=== PATIENT | female | born 1980 | race Hispanic/Latino ===

== ENCOUNTER 2021-09-03 09:44 | Outpatient (CLI) | payer SELFPAY ==
[2021-09-03 11:43] LABS: Hemoglobin 9.9 g/dL (12.0-15.5); Mean Corpuscular HGB CONC 31.2 g/dL (32.0-36.0); Mean Corpuscular Hemoglobin 23.9 pg (27.0-33.0); Mean Corpuscular Volume 76.6 fl (81.6-98.3); Platelet Count 341 10x3/uL (150-450); RBC Distribution Width 15.9 % (11.5-14.5); Red Blood Cell (RBC) Count 4.14 10x6/uL (3.90-5.03); White Blood Cell (WBC) Count 6.5 10x3/uL (3.5-10.5)
[2021-09-03 11:50] LABS: Bilirubin Neg (Negative); Blood, Urine Negative (Negative); Glucose, Urine (Dipstick) Normal (Negative); Ketone, Urine Negative (Negative); Leukocyte Negative (Negative); Nitrite Negative (Negative); Protein, Urine (Dipstick) Negative (Neg-Trace); Urobilinogen Normal mg/dL (Less than 2)
[2021-09-03 11:56] LABS: Clarity Clear (Clear)
[2021-09-03 12:29] LABS: BHCG - Serum Negative (NEGATIVE); Pregs Control Background? CLEAR/WHITE (CLR/WHITE); Pregs Control Bar Appear? YES (CONTROL BAR)
[2021-09-03 18:34] LABS: SARS-CoV-2 PCR by NAA Not Detected (NotDetected)
== END 2021-09-03 09:45 | disposition home or self-care (01) ==
LOC: CSHLAB 09:44
PROVIDERS: ATTEND Obstetrics & Gynecology
DX: Z01.812 Encounter for preprocedural laboratory examination (principal); Z20.822 Contact with and (suspected) exposure to COVID-19; D25.9 Leiomyoma of uterus, unspecified
CPT/HCPCS: 81003; 84703; 85027; U0003; U0005

== ENCOUNTER 2021-09-07 05:48 | Day surgery (SDC) | payer OTHER ==
[2021-09-03 10:55] VITALS: BMI 25.1
[2021-09-07] MEDS ORDERED: Lidocaine 1% MPF 2 ML VIAL ONE (06:26)
[2021-09-07] MEDS ORDERED: Dexamethasone 4 mg/ml Vial ONE (06:46)
[2021-09-07] MEDS ORDERED: Ondansetron PF 4 MG/2 ML Vial ONE (06:46)
[2021-09-07] MEDS ORDERED: Lidocaine 1% PF 5 ML VIAL ONE (06:46)
[2021-09-07] MEDS ORDERED: Fentanyl 100 MCG/2 ML VIAL ONE (06:46)
[2021-09-07] MEDS ORDERED: PROPOFOL 20 ML ONE (06:46)
[2021-09-07] MEDS ORDERED: Ketorolac Tromethamine 30 MG/ML VIAL ONE (06:47)
[2021-09-07] MEDS ORDERED: Midazolam HCl 2 mg/2 ml Vial ONE (07:00)
[2021-09-07] MEDS ORDERED: ceFAZolin 2 GM/Dextrose 50 ML IVPB ONE (07:01)
[2021-09-07] MEDS ORDERED: Furosemide 20 MG/2 ML VIAL ONE (08:08)
[2021-09-07] MEDS ORDERED: Meperidine HCl/PF 25 MG/ML VIAL ONE (08:27)
[2021-09-07 10:13] LABS: #Eosinphils 0.1 10x3/uL (0.0-0.5); #Monocytes 0.2 10x3/uL (0.0-1.1); #Neutrophils 12.2 10x3/uL (1.5-8.4); %Basophils 0.3 % (0.0-2.0); %Eosinophils 0.6 % (0.0-6.0); %Lymphocytes 8.2 % (18.0-47.0); %Monocytes 1.5 % (0.0-10.0); Hemoglobin 9.2 g/dL (12.0-15.5); Mean Corpuscular HGB CONC 31.2 g/dL (32.0-36.0); Mean Corpuscular Hemoglobin 23.7 pg (27.0-33.0); Mean Platelet Volume 10.8 fl (7.4-10.4); Platelet Count 284 10x3/uL (150-450); Red Blood Cell (RBC) Count 3.88 10x6/uL (3.90-5.03); White Blood Cell (WBC) Count 13.7 10x3/uL (3.5-10.5)
[2021-09-07 10:30] LABS: Anion Gap 13 mmol/L (10-20); BUN (Urea Nitrogen) 16 mg/dL (7.0-18.7); Calc. Creatinine Clearance 93 mL/min (70-130); Calcium 8.7 mg/dL (7.8-10.44); Carbon Dioxide 23 mmol/L (22-29); Chloride 104 mmol/L (98-107); Glucose 133 mg/dL (70-105); Potassium 3.8 mmol/L (3.5-5.1); Sodium 136 mmol/L (136-145)
== END 2021-09-07 11:05 | disposition home or self-care (01) ==
LOC: CSHSDC 05:48
PROVIDERS: ATTEND Obstetrics & Gynecology
PROC: 0UB98ZZ Excision of Uterus, Via Natural or Artificial Opening Endoscopic (ICD-10-PCS; principal; 2021-09-07)
DX: D25.1 Intramural leiomyoma of uterus (principal); N92.0 Excessive and frequent menstruation with regular cycle; D50.0 Iron deficiency anemia secondary to blood loss (chronic); Z79.899 Other long term (current) drug therapy
CPT/HCPCS: 36415; 80048; 85025; 88305; J0690; J1100; J1885; J1940; J2175; J2250; J2405; J2704; J3010

== ENCOUNTER 2023-09-21 13:20 | Emergency (ER) | payer OTHER ==
[2023-09-21 14:16] LABS: #Basophils 0.02 10x3/uL (0.0-0.2); #Eosinphils 0.02 10x3/uL (0.0-0.5); #Monocytes 0.36 10x3/uL (0.0-1.1); %Basophils 0.2 % (0.0-2.0); %Eosinophils 0.2 % (0.0-6.0); %Lymphocytes 7.2 % (18.0-47.0); %Monocytes 4.2 % (0.0-10.0); %Neutrophils 87.5 % (40.0-75.0); Hematocrit 31.2 % (34.9-44.5); Hemoglobin 11.2 g/dL (12.0-15.5); Mean Corpuscular HGB CONC 35.9 g/dL (32.0-36.0); Mean Corpuscular Hemoglobin 32.3 pg (27.0-33.0); Mean Corpuscular Volume 89.9 fl (81.6-98.3); Mean Platelet Volume 10.7 fl (7.4-10.4); Platelet Count 196 10x3/uL (150-450); RBC Distribution Width 13.7 % (11.5-14.5); Red Blood Cell (RBC) Count 3.47 10x6/uL (3.90-5.03); White Blood Cell (WBC) Count 8.6 10x3/uL (3.5-10.5)
[2023-09-21 14:35] LABS: ALT (SGPT) 61 U/L (8-55); AST (SGOT) 32 U/L (5-34); Albumin 2.5 g/dL (3.5-5.0); Alkaline Phosphatase 61 U/L (40-110); Anion Gap 11 mmol/L (10-20); BUN (Urea Nitrogen) 4 mg/dL (7.0-18.7); Bilirubin, Total 0.3 mg/dL (0.2-1.2); Calc. Creatinine Clearance 0 mL/min (70-130); Calcium 8.2 mg/dL (7.8-10.44); Carbon Dioxide 19 mmol/L (22-29); Chloride 107 mmol/L (98-107); Estimated GFR 115; Globulin 3.4 g/dL (2.4-3.5); Glucose 112 mg/dL (70-105); Potassium 3.3 mmol/L (3.5-5.1); Protein, Total 5.9 g/dL (6.0-8.3); Sodium 134 mmol/L (136-145)
[2023-09-22 14:47] LABS: Campy jejuni + coli by PCR POSITIVE (Negative); STEC Shiga Toxin 1+2 Negative (Negative); Salmonella spp. by PCR Negative (Negative); Shigella spp + EIEC by PCR Negative (Negative)
[2023-10-03 14:14] LABS: Routine O & P Final report (.)
== END 2023-09-21 16:29 | disposition home or self-care (01) ==
LOC: CSHERS 13:20
DX: K52.9 Noninfective gastroenteritis and colitis, unspecified (principal)
CPT/HCPCS: 80053; 82274; 85025; 87177; 87505; 93005; 96360

== ENCOUNTER 2024-01-14 17:39 | Inpatient (IN) | payer OTHER ==
[2024-01-14] MEDS: Lactated Ringer's 1,000 ML IV SCH (19:00)
[2024-01-14] MEDS ORDERED: Lidocaine 1% (PF) 30 ML VIAL SC PRN (19:10)
[2024-01-14] MEDS ORDERED: Ibuprofen 800 MG TAB PO PRN (19:10)
[2024-01-14] MEDS ORDERED: HYDROcodone/Acetaminophen 5/325 mg Tablet PO PRN ×2 (19:10)
[2024-01-14] MEDS ORDERED: Promethazine HCl 25 MG/ML VIAL IM PRN (19:10)
[2024-01-14] MEDS ORDERED: Ondansetron PF 4 MG/2 ML Vial IVP PRN (19:10)
[2024-01-14] MEDS ORDERED: hydrALAZINE 20 MG/ML VIAL SLOW IVP PRN (19:10)
[2024-01-14] MEDS ORDERED: fentaNYL 50 mcg/mL 1 mL Vial SLOW IVP PRN (19:10)
[2024-01-14 19:15] VITALS: BMI 31.1
[2024-01-14] MEDS ORDERED: Oxytocin 30 units/NS 500 ML 500 ML IV SCH (19:15)
[2024-01-14] MEDS: Penicillin G Potassium 5 MILL.UNITS in Sodium Chloride 0.9% 100 ML IVPB SCH (19:31)
[2024-01-14] MEDS: Misoprostol 100 MCG TAB VAG SCH ×3 (19:35→22:15)
[2024-01-14 19:57] LABS: Hematocrit 33.5 % (34.9-44.5); Mean Corpuscular HGB CONC 35.8 g/dL (32.0-36.0); Mean Corpuscular Hemoglobin 31.7 pg (27.0-33.0); Mean Corpuscular Volume 88.6 fL (81.6-98.3); Mean Platelet Volume 11.5 fL (7.4-10.4); Platelet Count 187 10x3/uL (150-450); RBC Distribution Width 13.8 % (11.5-14.5); Red Blood Cell (RBC) Count 3.78 10x6/uL (3.90-5.03)
[2024-01-14 20:24] LABS: HBsAg Index 0.19 S/CO (0-0.99); Hep B Surf Ag - L&D Non-Reactive S/CO (NonReactive)
[2024-01-14 20:26] LABS: Syphilis Antibody Nonreactive (Nonreactive); Syphilis Antibody Index 0.04 S/CO (<1.00 Non-Reactive)
[2024-01-14] MEDS: Penicillin G 2.5 MILL.units 2.5 MILL.UNITS in Premix 1 BAG IVPB SCH (23:20)
[2024-01-15] MEDS: fentaNYL/Ropivacaine Epidural 100 ML ONE (04:06)
[2024-01-15] MEDS ORDERED: diphenhydrAMINE 50 MG/ML VIAL IVP PRN (04:13)
[2024-01-15] MEDS ORDERED: Promethazine HCl 25 MG/ML VIAL IM PRN (04:13)
[2024-01-15] MEDS ORDERED: ePHEDrine Sulfate 50 MG/10 ML VIAL SLOW IVP PRN (04:13)
[2024-01-15] MEDS ORDERED: Naloxone HCl 0.4 mg/ml Vial IVP PRN ×2 (04:13)
[2024-01-15] MEDS ORDERED: Lactated Ringer's 500 ML IV PRN (04:13)
[2024-01-15] MEDS ORDERED: Acetaminophen 325 MG TAB PO PRN (04:13)
[2024-01-15] MEDS ORDERED: Ondansetron PF 4 MG/2 ML Vial IVP PRN ×2 (04:13→14:51)
[2024-01-15] MEDS ORDERED: Moisturizing Cream (Eucerin) 113 GM JAR TOP PRN (04:13)
[2024-01-15] MEDS ORDERED: Communication Order-Pharmacy FS SCH (04:15)
[2024-01-15] MEDS ORDERED: fentaNYL 2 mcg/Ropivacaine 0.2% Epidural 100 ML CADD EPIDURAL SCH (04:15)
[2024-01-15] MEDS: Sterile Water 10 ML ONE (07:43)
[2024-01-15] MEDS: Dexmedetomidine 200 MCG/2 ML VIAL ONE (07:43)
[2024-01-15] MEDS: Oxytocin 30 units/NS 500 ML 500 ML IV SCH (14:23)
[2024-01-15] MEDS ORDERED: Lanolin Ointment 7 GM TUBE TOP PRN (14:51)
[2024-01-15] MEDS ORDERED: hydrALAZINE 20 MG/ML VIAL SLOW IVP PRN (14:51)
[2024-01-15] MEDS ORDERED: HYDROcodone/Acetaminophen 5/325 mg Tablet PO PRN ×2 (14:51)
[2024-01-15] MEDS ORDERED: Milk Of Magnesia 30 ML UDCUP PO PRN (14:51)
[2024-01-15] MEDS ORDERED: Benzocaine-Menthol 82.5 ML CAN TOP PRN (14:51)
[2024-01-15] MEDS ORDERED: Preparation H Ointment 28 GM TUBE PR PRN (14:51)
[2024-01-15] MEDS ORDERED: Bisacodyl 10 MG SUPP PR PRN (14:51)
[2024-01-15] MEDS ORDERED: diphenhydrAMINE 25 MG CAP PO PRN (14:51)
[2024-01-15] MEDS ORDERED: Oxytocin 30 units/NS 500 ML 500 ML IV SCH (14:51)
[2024-01-15] MEDS: Boostrix 0.5 ML (Tdap) VIAL (>/=7 yrs of age) IM ONE (15:30)
[2024-01-15] MEDS: Ibuprofen 800 MG TAB PO SCH ×2 (18:13→21:33)
[2024-01-15] MEDS: Ferrous Sulfate 325 MG TAB PO SCH (18:14)
[2024-01-15] MEDS: Docusate 100 MG CAP PO SCH (21:33)
[2024-01-16] MEDS: Prenatal Vitamin 1 TAB PO SCH (09:06)
[2024-01-16 11:28] VITALS: BP 112/57; TEMP 97.5
== END 2024-01-16 15:00 | disposition home or self-care (01) | DRG 807 ==
LOC: CSHLD 17:39 → CSHPP 01-15 14:50
PROVIDERS: ADMIT Obstetrics & Gynecology; ATTEND Obstetrics & Gynecology
PROC: 10E0XZZ Delivery of Products of Conception, External Approach (ICD-10-PCS; principal; 2024-01-15)
PROC: 0HQ9XZZ Repair Perineum Skin, External Approach (ICD-10-PCS; 2024-01-15)
DX: O99.824 Streptococcus B carrier state complicating childbirth (principal); Z37.0 Single live birth; O09.523 Supervision of elderly multigravida, third trimester; Z3A.39 39 weeks gestation of pregnancy; O70.0 First degree perineal laceration during delivery
CPT/HCPCS: 36415; 51702; 85027; 86780; 86850; 86900; 86901; 87340; J2210; J2540; J2590; J3490; J7120